=== PATIENT | female | born 1960 | race Caucasian/White ===

== ENCOUNTER → 2016-11-12 | Outpatient (CLI) | payer OTHER, BC | END | disposition home or self-care (01) | LOC: CFH 07:14 | PROVIDERS: ATTEND Family Medicine | DX: M22.42 Chondromalacia patellae, left knee (principal); M95.8 Other specified acquired deformities of musculoskeletal system ==

== ENCOUNTER 2021-02-15 15:47 | Emergency (ER) | payer BC ==
[~2021-02-15] VITALS: Ht 162.6 cm; Wt 73.5 kg
[2021-02-15 15:48] VITALS: BP 132/66
[2021-02-15] MEDS ORDERED: LIDOCAINE-MPF 1%, 5ML INFIL ONE (16:30)
[2021-02-15] MEDS ORDERED: LIDOCAINE-MPF 1%, 5ML ONE (16:37)
[2021-02-15] MEDS ORDERED: NEOSPORIN OINT. PKT 1 PACKET ONE (16:45)
--- NOTE | 2021-02-15 17:16 | NUR ---
ERPA AT BEDSIDE FOR SUTURES.
== END 2021-02-15 17:48 | disposition home or self-care (01) ==
LOC: ED 16:20
DX: S91.012A Laceration without foreign body, left ankle, initial encounter (principal); X58.XXXA Exposure to other specified factors, initial encounter; Y93.89 Activity, other specified; Y92.009 Unspecified place in unspecified non-institutional (private) residence as the place of occurrence of the external cause; Y99.8 Other external cause status
CPT/HCPCS: 12032; 12042; 99284